=== PATIENT | female | born 1950 | race Caucasian/White ===

== ENCOUNTER → 2016-12-08 | Outpatient (CLI) | payer MEDICARE ==
--- NOTE | 2016-12-09 08:45 | KCIC ---
MR of the left knee Indication: Left knee pain and swelling. Medial pain since January. No known injury. COMPARISON: None Technique: The standard multiplanar sequences are obtained. Findings: Signal within the posterior horn and body segment, violates the undersurface, compatible with a tear. This also extends into the posterior root. Medial meniscus:Intact. Lateral meniscus: Intact. Anterior cruciate ligament: Intact Posterior cruciate ligament: Intact Medial collateral ligament: Intact. Mild fluid along the surface. Iliotibial band: Intact. Posterolateral structures: Fibular collateral ligament, biceps tendon and popliteus tendon are intact. Extensor mechanism: Intact. Fluid: Small joint effusion. Articular cartilage -patellofemoral joint:Intact -medial compartment:Intact -lateral compartment:Intact Bones: No significant lesion or acute fracture. Soft tissue: Unremarkable Impression: 1. Medial meniscal tear. 2. Mild fluid tracks along the medial collateral ligament, but no tear. Electronically signed by: Anuj Butterfield MD (12/09/2016 8:41 AM) [facility]
== END | disposition home or self-care (01) ==
LOC: KCIC MRI 16:39
PROVIDERS: ATTEND Orthopaedic Surgery
DX: M25.462 Effusion, left knee (principal); S83.242A Other tear of medial meniscus, current injury, left knee, initial encounter; X58.XXXA Exposure to other specified factors, initial encounter; Y93.89 Activity, other specified; Y92.89 Other specified places as the place of occurrence of the external cause; Y99.8 Other external cause status
CPT/HCPCS: 73721

== ENCOUNTER → 2017-04-02 | Outpatient (CLI) | payer MEDICARE ==
--- NOTE | 2017-04-08 10:51 | KCIC ---
PROCEDURE: LOWER EXT JOINT WO RT MR of the right knee Indication: Right knee pain after recent fall. Generalized pain and swelling. Pain since December after having left knee surgery. Technique: The standard multiplanar sequences are obtained. COMPARISON: November 21, 2014. Findings: Medial meniscus: Mild signal within the posterior horn compatible with a tear. There is some extrusion of meniscus into the medial tibial recess. Lateral meniscus: Intact. Anterior cruciate ligament: Intact Posterior cruciate ligament: Intact Medial collateral ligament: Intact. Iliotibial band: Intact. Posterolateral structures: Fibular collateral ligament, biceps tendon and popliteus tendon are intact. Extensor mechanism: Intact. Fluid: Moderate joint effusion. Articular cartilage -patellofemoral joint: Severe chondromalacia at the medial patella. -medial compartment: Intact articular cartilage. Minimal subchondral marrow edema. -lateral compartment:Intact Bones: No significant lesion or acute fracture. Soft tissue: Mild subcutaneous edema around the knee. There is some ill-defined intermediate signal at the posterior intercondylar notch, sagittal image 12 and coronal image 9.. This may just represent some focal nodular synovitis or blood product in the joint. This has a cylindrical morphology measuring 17 mm length. Loose body is considered less likely. Impression: 1. Medial meniscal tear. 2. Severe chondromalacia of the patella. 3. Moderate joint effusion. 4. Intermediate signal structure within the intracondylar notch, may represent some focal nodular synovitis or blood product. Loose body considered less likely. Electronically signed by: Anuj Butterfield MD (04/02/2017 3:19 PM) [id number] MTDD
== END | disposition home or self-care (01) ==
LOC: KCIC MRI 12:30
PROVIDERS: ATTEND Orthopaedic Surgery
DX: S83.241A Other tear of medial meniscus, current injury, right knee, initial encounter (principal); M22.41 Chondromalacia patellae, right knee; M25.461 Effusion, right knee; X58.XXXA Exposure to other specified factors, initial encounter; Y93.89 Activity, other specified; Y92.89 Other specified places as the place of occurrence of the external cause; Y99.8 Other external cause status
CPT/HCPCS: 73721